=== PATIENT | male | born 1960 | race Caucasian/White ===

== ENCOUNTER 2023-01-28 15:40 | Outpatient (OUT) | payer SELFPAY ==
--- NOTE | 2023-01-28 | XR_ITS ---
The [address] [address] Patient Name: LILLIAN Katherine VYAS MRN: [id number]:[id number] date: 1960 Sex: M Assigned Patient Location: [facility] Current Patient Location: Accession/Order Number: [id number] Exam Date: 01/28/2023 15:44 Report Date: 01/30/2023 07:39 At the request of: SHEILA MILLER Procedure: XR foot RT min 3V PROCEDURE: XR foot RT min 3V HISTORY: RIGHT FOOT PAIN COMPARISON: XR foot right 08/12/2022 FINDINGS: BONES:Mechanical fusion of the first metatarsophalangeal joint via dorsal plate and screws. No hardware fracture or loosening. No bone fracture dislocation. SOFT TISSUES:No visible soft tissue swelling. EFFUSION:None visible. OTHER: Negative. XR/XR foot RT min 3V IMPRESSION: 1. Stable surgical changes without evidence of hardware failure or change in alignment. Electronically authenticated by: VIN BRITO Date: 01/30/2023 07:39
== END 2023-01-28 15:41 | disposition home or self-care (01) ==
LOC: RAD 15:45
PROVIDERS: Visit Provider Podiatrist Foot & Ankle Surgery
DX: M20.21 Hallux rigidus, right foot (principal)
CPT/HCPCS: 73630